=== PATIENT | male | born 1965 | race Caucasian/White ===

== ENCOUNTER 2016-12-31 11:09 | Day surgery (SDC) | payer OTHER ==
[~2016-12-31] VITALS: Ht 177.8 cm; Wt 102.7 kg
[~2016-12-31 11:09] MED LIST: 0.9% Sodium Chloride 1,000 ML IV SCH; Sodium Chloride LOK Flush 10 mL Syringe IV PRN; fentaNYL-PF 50 mCg/mL 2 mL Inj IVPUSH PRN
[2016-12-31 11:42] VITALS: BP 134/88; PULSE 75; RESP 14; O2SAT 98
[2016-12-31 12:47] VITALS: BP 140/79; PULSE 63; RESP 14; O2SAT 93
[2016-12-31 12:57] VITALS: BP 140/81; PULSE 80; RESP 14; O2SAT 97
[2016-12-31 13:24] VITALS: BP 129/70; PULSE 72; RESP 14; O2SAT 96
--- NOTE | 2016-12-31 14:00 | ENDO ---
[address] [address] ENDOSCOPY PROCEDURE PATIENT: JCARLOS NOLAND : 1965 MR#: [id number] ADMIT: 12/31/2016 JOB ID: [id number] PROCEDURE: Colonoscopy. INDICATIONS: Screening. Patient's ASA classification is II. Mallampati score is 2. MEDICATIONS: Versed 3 mg, Fentanyl 75 mcg. INSTRUMENT USED: PCF-H180AL. Prep quality was good. PROCEDURE DETAILS: After informed consent was obtained, the patient was brought into the GI suite, where he was placed on oxygen via nasal cannula and monitored with continuous pulse oximeter, telemetry, and blood pressure monitoring. A time-out was performed. Then, he was placed in the left lateral decubitus position and medications were administered for sedation. Digital rectal exam with palpation of the prostate was performed which was unremarkable. The colonoscope was then inserted into the rectum and advanced under direct visualization to the cecum, which identified by the presence of the ileocecal valve and appendiceal orifice. Once the cecum was reached, the colonoscope was withdrawn back into the rectum as the mucosa and lumen were examined. In the rectum, retroflexion was performed. Following retroflexion, remaining air in the rectum was suctioned and procedure was completed. FINDINGS: Scattered diverticula were seen on the left side of the colon. Otherwise, normal exam from rectum to cecum. IMPRESSION: Left-sided diverticulosis. RECOMMENDATIONS: Repeat colonoscopy in 10 years, sooner if symptoms should dictate. COMPLICATIONS: None. ESTIMATED BLOOD LOSS: Zero. CC: Primary care provider, Dr. Danica Martinez.
== END 2016-12-31 23:59 | disposition home or self-care (01) ==
LOC: END 11:09
PROVIDERS: ATTEND Internal Medicine Gastroenterology
DX: Z12.11 Encounter for screening for malignant neoplasm of colon (principal); K57.30 Diverticulosis of large intestine without perforation or abscess without bleeding
CPT/HCPCS: G0121; G0500; J2250; J3010; J7030